=== PATIENT | male | born 1985 | race Caucasian/White ===

== ENCOUNTER 2019-12-14 14:21 | Emergency (ER) | payer OTHER ==
[~2019-12-14] VITALS: Ht 175.3 cm; Wt 83.7 kg
[2019-12-14] MEDS ORDERED: KETOROLAC 60 MG/2 ML VIAL (J1885) IM ONE (16:30)
[2019-12-14] MEDS ORDERED: DOXY100C37 PO (16:36)
[2019-12-14] MEDS ORDERED: PRED10TA2 PO (16:36)
[2019-12-14 16:43] VITALS: BP 141/79
== END 2019-12-14 16:55 | disposition home or self-care (01) ==
LOC: M ED 14:21
DX: H60.12 Cellulitis of left external ear (principal)
CPT/HCPCS: 96372; 99283; J1885

== ENCOUNTER 2021-06-23 13:18 | Emergency (ER) | payer OTHER ==
[~2021-06-23] VITALS: Ht 175.3 cm; Wt 85.3 kg
[2021-06-23 13:18] VITALS: BP 131/82
[~2021-06-23 13:18] MED LIST: DOXY1CAP62 PO; PRED10TA2 PO
== END 2021-06-23 16:49 | disposition left against medical advice (07) ==
LOC: M ED 13:18
DX: Z53.21 Procedure and treatment not carried out due to patient leaving prior to being seen by health care provider (principal)

== ENCOUNTER → 2022-03-10 | Outpatient (CLI) | payer OTHER ==
[~2022-03-10] MED LIST changes: +DOXY-443 PO; -DOXY1CAP62 PO; +GASTROGRAFIN SOLUTION 30ML (Q9963) As Ordered ONE; +ISOVUE-370 76% 100ML VIAL As Ordered ONE
== END ==
LOC: M RAD 08:37
PROVIDERS: ATTEND Emergency Medicine
DX: R07.89 Other chest pain (principal); K44.9 Diaphragmatic hernia without obstruction or gangrene; K57.30 Diverticulosis of large intestine without perforation or abscess without bleeding
CPT/HCPCS: 74177; Q9963; Q9967